=== PATIENT | female | born 1950 | race Caucasian/White ===

== ENCOUNTER 2018-10-05 15:42 | Inpatient (IN) | payer OTHER ==
[~2018-10-05] VITALS: Ht 167.6 cm; Wt 85.8 kg
[~2018-10-05 15:42] MED LIST: CIME200T6 PO; DULO20CA45 PO; GEMF600T8 PO; INSU100V8 SQ; LEVO75TA5 PO; METF850T10 PO; METO200T47 PO; METO25TA35 PO; PREG25CA PO; TRAM50TA2 PO
[2018-10-05] MEDS ORDERED: ONDANSETRON 2MG/ML, 2ML IVPush ONE (16:30)
[2018-10-05] MEDS ORDERED: SODIUM CHLORIDE FLUSH 10ML SYR IVF ONE (16:30)
--- NOTE | 2018-10-05 16:31 | NUR ---
pt bib remsa for chest, jaw and arm pain since 1400. pt has extensive cardiac history. states pain is like no other. pt also states she has diarrhea and has an incontinent pad in place. pt states she also used a grocery bag to contain her stool. pt helped to stand and cleaned. pt helped back to bed and md at bedside to assess. pt vital signs stable at this time. complaining of pain to chest. no changes noted.
[2018-10-05] MEDS ORDERED: MORPHINE SULFATE 4 MG/ML, 1ML ONE ×3 (16:44→19:13)
[2018-10-05] MEDS ORDERED: ONDANSETRON 2MG/ML, 2ML ONE (16:44)
[2018-10-05] MEDS: MORPHINE SULFATE 4 MG/ML, 1ML IVPush PRN ×2 (16:48→17:38)
[2018-10-05 16:51] LABS: BASOPHILS # (AUTO) 0.04 x10^3/uL (0-0.1); BASOPHILS % (AUTO) 0 % (0-1); EOSINOPHILS # (AUTO) 0.06 x10^3/uL (0-0.4); EOSINOPHILS % (AUTO) 0 % (1-7); LYMPHOCYTES # (AUTO) 0.99 x10^3/uL (1-3.4); LYMPHOCYTES % (AUTO) 7 % (22-44); MD NO; MEAN CORPUSCULAR HGB CONC 33.9 g/dL (32.4-35.8); MEAN CORPUSCULAR VOLUME 94.3 fL (80-100); MEAN PLATELET VOLUME 7.8 fL (7.4-10.4); MONOCYTES % (AUTO) 4 % (2-9); NEUTROPHILS % (AUTO) 89 % (42-75); PLATELET COUNT 340 x10^3/uL (130-400); RED BLOOD COUNT 5.38 x10^6/uL (3.82-5.3); RED CELL DISTRIBUTION WIDTH 13.9 % (9.6-15.2)
--- NOTE | 2018-10-05 16:53 | NUR ---
[facility] records [facility]
--- NOTE | 2018-10-05 16:54 | NUR ---
pt requesting this rn calls her daughter. pt states she might be working at [facility] but doesnt have a phone number for her. she approves this rn to call and leave a message for someone to contact her daughter and advise she is in the ed. this rn left a message for daughter at the [facility] and asked for her to call me back.
--- NOTE | 2018-10-05 16:58 | NUR ---
daughter returned call and will be attempting to come to the ed.
[2018-10-05 17:03] LABS: ALANINE AMINOTRANSFERASE 25 U/L (12-78); ALBUMIN 3.5 g/dL (3.4-5.0); ANION GAP 10 mmol/L (5-15); CALCIUM 8.7 mg/dL (8.5-10.1); CHLORIDE 100 mmol/L (98-107)
[2018-10-05 17:07] LABS: ALKALINE PHOSPHATASE 81 U/L (45-117); BILIRUBIN,TOTAL 0.5 mg/dL (0.2-1.0); TOTAL PROTEIN 7.6 g/dL (6.4-8.2)
[2018-10-05 17:10] LABS: TROPONIN I 0.135 ng/mL (0.000-0.045)
[2018-10-05 17:17] LABS: INTERNATIONAL NORMALIZED RATIO 1.04 (0.93-1.1)
--- NOTE | 2018-10-05 17:45 | NUR ---
pt resting in bed, medicated for pain per orders. pt updated on POC at this time. will continue to monitor.
--- NOTE | 2018-10-05 17:49 | NUR ---
ed [facility] the [facility] and [facility] pt will be admitted to [place]
--- NOTE | 2018-10-05 19:02 | NUR ---
TP RN: CALL[facility]; [facility] AND [facility] NOT BE ACCEPTING PT. FOR TRANSFER.
[2018-10-05] MEDS ORDERED: SODIUM CHLORIDE 0.9% 1,000 ML IV SCH (19:06)
[2018-10-05] MEDS: METOPROLOL TARTRATE 25 MG TABLET PO SCH (19:30)
[2018-10-05] MEDS ORDERED: ENOXAPARIN 40 MG/0.4 ML SQ SCH (19:30)
[2018-10-05] MEDS ORDERED: morphine SULFATE 10 MG/ML, 1ML IVPush PRN (19:30)
[2018-10-05] MEDS ORDERED: MORPHINE SULFATE 4 MG/ML, 1ML IVPush PRN (19:30)
[2018-10-05] MEDS ORDERED: ONDANSETRON 2MG/ML, 2ML IVPush PRN (19:30)
--- NOTE | 2018-10-05 19:45 | NUR ---
PT PROVIDED WATER PER ORDER
[2018-10-05] MEDS ORDERED: hydrOXyzine 50MG TABLET PO PRN (20:00)
--- NOTE | 2018-10-05 20:40 | NUR ---
AT PATIENT REQUEST, SOILED UNDERGARMENTS DISPOSED OF. PT PANTS PLACED IN 1 BAG, PT SHIRT AND ZIP UP OUTER SHIRT ARE PLACED IN A SECOND BAG. PT HAD 1 POUCH WITH ID'S AND OTHER PERSONAL ITEMS. THIS WAS PLACED IN THE POCKET OF THE OUTER SHIRT PER PATIENT REQUEST. ALL BELONGINGS AT BEDSIDE WITH PATIENT AT THIS TIME.
--- NOTE | 2018-10-05 20:58 | NUR ---
REPORT TO PASTOR AT THIS TIME
[2018-10-05] MEDS: INSULIN GLARGINE 100 UNITS/ML, PEN SQ-INSULIN SCH ×2 (21:00→23:33)
[2018-10-05] MEDS: INSULIN LISPRO 100 UNITS/ML, PEN SQ-INSULIN SCH (23:34)
[2018-10-06 00:25] VITALS: BP 74/45
[2018-10-06] MEDS: ACETAMINOPHEN 325 MG TABLET PO PRN (01:27)
[2018-10-06 01:28] VITALS: BP 81/46
[2018-10-06 05:37] LABS: BASOPHILS # (AUTO) 0.02 x10^3/uL (0-0.1); BASOPHILS % (AUTO) 0 % (0-1); EOSINOPHILS % (AUTO) 3 % (1-7); LYMPHOCYTES # (AUTO) 1.67 x10^3/uL (1-3.4); LYMPHOCYTES % (AUTO) 14 % (22-44); MD NO; MEAN CORPUSCULAR HEMOGLOBIN 32.1 pg (27.0-34.8); MEAN CORPUSCULAR HGB CONC 34.4 g/dL (32.4-35.8); MEAN CORPUSCULAR VOLUME 93.3 fL (80-100); MEAN PLATELET VOLUME 7.7 fL (7.4-10.4); MONOCYTES # (AUTO) 0.85 x10^3/uL (0.2-0.8); MONOCYTES % (AUTO) 7 % (2-9); NEUTROPHILS % (AUTO) 76 % (42-75); PLATELET COUNT 265 x10^3/uL (130-400); RED BLOOD COUNT 4.65 x10^6/uL (3.82-5.3); RED CELL DISTRIBUTION WIDTH 13.5 % (9.6-15.2)
[2018-10-06 05:49] LABS: CHLORIDE 101 mmol/L (98-107)
[2018-10-06 05:58] LABS: ALANINE AMINOTRANSFERASE 33 U/L (12-78); ALKALINE PHOSPHATASE 69 U/L (45-117); ANION GAP 6 mmol/L (5-15); BILIRUBIN,TOTAL 0.4 mg/dL (0.2-1.0); CALCIUM 8.2 mg/dL (8.5-10.1); CHOL/HDL RATIO 7.9; CHOLESTEROL, TOTAL 222 mg/dL (140-239); CREATININE 0.91 mg/dL (0.55-1.02); HDL CHOL % 13 % (28-40); HDL CHOLESTEROL (DIRECT) 28 mg/dL (40-60); LDL CHOLESTEROL,CALCULATED 116 mg/dL (54-169); LDL/HDL RATIO 4.1 (0.5-3.0); TOTAL PROTEIN 6.4 g/dL (6.4-8.2); TRIGLYCERIDES 389 mg/dL (50-200); VLDL CHOLESTEROL 78 mg/dL (0-25)
[2018-10-06] MEDS: METOPROLOL TARTRATE 25 MG TABLET PO SCH ×2 (06:00→16:27)
[2018-10-06] MEDS ORDERED: NICOTINE 14MG/24 HR PATCH.TD24 TD ONE (06:30)
[2018-10-06] MEDS ORDERED: LOVENOX/HEPARIN MC SCH (06:30)
[2018-10-06] MEDS ORDERED: SODIUM CHLORIDE 0.9%, 500ML IVBOLUS ONE ×2 (07:00→08:00)
[2018-10-06] MEDS ORDERED: HEPARIN 25,000 UNITS/500ML PMX 500 ML ONE (07:30)
[2018-10-06 07:47] VITALS: BP 111/77
[2018-10-06] MEDS ORDERED: HEPARIN 25,000 UNITS/500ML PMX 500 ML IV PRN (08:00)
[2018-10-06] MEDS ORDERED: HEPARIN 5,000 UNITS/ML, 1ML IV PRN (08:00)
[2018-10-06] MEDS ORDERED: FENTANYL PF 100 MCG/2ML ONE (08:16)
[2018-10-06] MEDS ORDERED: MIDAZOLAM 1 MG/ML, 5ML ONE (08:16)
[2018-10-06] MEDS ORDERED: NITROGLYCERIN 5 MG/ML, 10ML ONE (08:17)
[2018-10-06] MEDS ORDERED: LIDOCAINE 2%, 20ML ONE (08:17)
[2018-10-06] MEDS ORDERED: BIVALIRUDIN 250 MG ONE (08:17)
[2018-10-06] MEDS ORDERED: TICAGRELOR 90 MG TABLET ONE (08:17)
[2018-10-06] MEDS: CIMETIDINE 200 MG TABLET PO SCH (09:00)
[2018-10-06] MEDS: INSULIN LISPRO 100 UNITS/ML, PEN SQ-INSULIN SCH ×4 (09:00→21:54)
[2018-10-06] MEDS ORDERED: PRASUGREL 10 MG TABLET ONE (09:10)
[2018-10-06] MEDS ORDERED: BIVALIRUDIN 250 MG in DEXTROSE 5% 100 ML IV SCH (09:17)
[2018-10-06] MEDS: SODIUM CHLORIDE 0.9% 1,000 ML IV SCH ×2 (09:30→17:16)
[2018-10-06] MEDS: LEVOTHYROXINE 75 MCG TABLET PO SCH (10:17)
[2018-10-06 13:23] LABS: HEMOGLOBIN A1C 9.3 % (4.2-6.3)
[2018-10-06 13:58] VITALS: BP 88/44
[2018-10-06 17:21] LABS: CULTURE INDICATED? YES; MICROSCOPIC INDICATED
[2018-10-06] MEDS ORDERED: CALC60CR3 TP (21:38)
[2018-10-06 21:40] VITALS: BP 96/58
[2018-10-06] MEDS: ATORVASTATIN 40 MG TABLET PO SCH (21:53)
[2018-10-06] MEDS: INSULIN GLARGINE 100 UNITS/ML, PEN SQ-INSULIN SCH (21:54)
[2018-10-07] MEDS: SODIUM CHLORIDE 0.9% 1,000 ML IV SCH ×2 (01:17→16:41)
[2018-10-07 04:32] VITALS: BP 94/54
[2018-10-07 05:17] LABS: BASOPHILS # (AUTO) 0.04 x10^3/uL (0-0.1); BASOPHILS % (AUTO) 1 % (0-1); EOSINOPHILS # (AUTO) 0.07 x10^3/uL (0-0.4); EOSINOPHILS % (AUTO) 1 % (1-7); LYMPHOCYTES # (AUTO) 1.05 x10^3/uL (1-3.4); LYMPHOCYTES % (AUTO) 13 % (22-44); MD NO; MEAN CORPUSCULAR HEMOGLOBIN 32.6 pg (27.0-34.8); MEAN CORPUSCULAR HGB CONC 34.8 g/dL (32.4-35.8); MEAN CORPUSCULAR VOLUME 93.8 fL (80-100); MEAN PLATELET VOLUME 7.9 fL (7.4-10.4); MONOCYTES # (AUTO) 0.68 x10^3/uL (0.2-0.8); MONOCYTES % (AUTO) 9 % (2-9); NEUTROPHILS # (AUTO) 6.07 x10^3/uL (1.8-6.8); NEUTROPHILS % (AUTO) 77 % (42-75); PLATELET COUNT 232 x10^3/uL (130-400); RED BLOOD COUNT 4.84 x10^6/uL (3.82-5.3); RED CELL DISTRIBUTION WIDTH 13.7 % (9.6-15.2)
[2018-10-07 05:24] LABS: ANION GAP 1 mmol/L (5-15); CALCIUM 8.8 mg/dL (8.5-10.1); CHLORIDE 107 mmol/L (98-107); CREATININE 0.72 mg/dL (0.55-1.02)
[2018-10-07] MEDS: METOPROLOL TARTRATE 25 MG TABLET PO SCH ×3 (06:00→17:00)
[2018-10-07 07:25] VITALS: BP 99/62
[2018-10-07] MEDS: LEVOTHYROXINE 75 MCG TABLET PO SCH (08:43)
[2018-10-07] MEDS: PRASUGREL 10 MG TABLET PO SCH (08:43)
[2018-10-07] MEDS: CIMETIDINE 200 MG TABLET PO SCH (08:44)
[2018-10-07] MEDS: INSULIN LISPRO 100 UNITS/ML, PEN SQ-INSULIN SCH ×4 (08:50→21:25)
[2018-10-07] MEDS: CEFTRIAXONE PMX 1GM/50ML 50 ML IV SCH (10:23)
[2018-10-07 14:04] VITALS: BP 91/58
[2018-10-07] MEDS: GUAIFENESIN 200 MG TABLET PO SCH ×2 (16:57→21:25)
[2018-10-07] MEDS: MINERA CRM, 60GM TP SCH ×2 (16:57→21:26)
[2018-10-07 20:45] VITALS: BP 124/68
[2018-10-07] MEDS: ATORVASTATIN 40 MG TABLET PO SCH (21:24)
[2018-10-07] MEDS: ACETAMINOPHEN 325 MG TABLET PO PRN (21:24)
[2018-10-07] MEDS: INSULIN GLARGINE 100 UNITS/ML, PEN SQ-INSULIN SCH (21:26)
[2018-10-08 04:57] VITALS: BP 114/80
[2018-10-08] MEDS: GUAIFENESIN 200 MG TABLET PO SCH ×2 (06:10→11:45)
[2018-10-08] MEDS: ACETAMINOPHEN 325 MG TABLET PO PRN (06:10)
[2018-10-08] MEDS: METOPROLOL TARTRATE 25 MG TABLET PO SCH (06:11)
[2018-10-08] MEDS: MINERA CRM, 60GM TP SCH ×2 (06:11→11:45)
[2018-10-08] MEDS ORDERED: ASPIRIN 81 MG TABLET EC PO SCH (07:30)
[2018-10-08] MEDS ORDERED: PRAS10TA4 PO (07:32)
[2018-10-08] MEDS ORDERED: ASPI81TA45 PO (07:32)
[2018-10-08] MEDS ORDERED: INSU100I11 SQ-INSULIN (07:32)
[2018-10-08] MEDS ORDERED: INSU100I13 SQ-INSULIN (07:32)
[2018-10-08] MEDS ORDERED: METO25TA35 PO (07:32)
[2018-10-08] MEDS ORDERED: ATOR40TA78 PO (07:32)
[2018-10-08] MEDS ORDERED: CEFD300C37 PO (07:33)
[2018-10-08] MEDS: PRASUGREL 10 MG TABLET PO SCH (08:53)
[2018-10-08] MEDS: LEVOTHYROXINE 75 MCG TABLET PO SCH (08:53)
[2018-10-08] MEDS: INSULIN LISPRO 100 UNITS/ML, PEN SQ-INSULIN SCH ×2 (08:58→11:45)
[2018-10-08] MEDS: CIMETIDINE 200 MG TABLET PO SCH (08:59)
[2018-10-08] MEDS ORDERED: NICOTINE 21 MG/24 HR PATCH.TD24 TD SCH (09:00)
[2018-10-08 09:16] VITALS: BP 92/52
[2018-10-08] MEDS: CEFTRIAXONE PMX 1GM/50ML 50 ML IV SCH (10:18)
[2018-10-08] MEDS ORDERED: [UNRECOGNIZED DRUG - OTHER] (11:37)
[2018-10-08] MEDS ORDERED: INSU100C SQ-INSULIN (11:38)
[2018-10-08] MEDS ORDERED: INSULIN GLARGINE 100 UNITS/ML, PEN SQ-INSULIN SCH (21:00)
== END 2018-10-08 14:55 | disposition home or self-care (01) | DRG 246 ==
LOC: ED 17:21 → EDIP 19:06 → SUATTDRO 19:06 → 5SO 22:31 → DCLOUNGE 10-08 14:35
PROVIDERS: ADMIT Hospitalist; ATTEND Hospitalist
PROC: 027034Z Dilation of Coronary Artery, One Artery with Drug-eluting Intraluminal Device, Percutaneous Approach (ICD-10-PCS; principal; 2018-10-06)
PROC: 4A023N7 Measurement of Cardiac Sampling and Pressure, Left Heart, Percutaneous Approach (ICD-10-PCS; 2018-10-06)
PROC: B2111ZZ Fluoroscopy of Multiple Coronary Arteries using Low Osmolar Contrast (ICD-10-PCS; 2018-10-06)
PROC: B2151ZZ Fluoroscopy of Left Heart using Low Osmolar Contrast (ICD-10-PCS; 2018-10-06)
PROC: B2131ZZ Fluoroscopy of Multiple Coronary Artery Bypass Grafts using Low Osmolar Contrast (ICD-10-PCS; 2018-10-06)
PROC: B2181ZZ Fluoroscopy of Left Internal Mammary Bypass Graft using Low Osmolar Contrast (ICD-10-PCS; 2018-10-06)
DX: T82.898A Other specified complication of vascular prosthetic devices, implants and grafts, initial encounter (principal); I21.4 Non-ST elevation (NSTEMI) myocardial infarction; E87.1 Hypo-osmolality and hyponatremia; I44.2 Atrioventricular block, complete; N39.0 Urinary tract infection, site not specified; B96.20 Unspecified Escherichia coli [E. coli] as the cause of diseases classified elsewhere; E11.51 Type 2 diabetes mellitus with diabetic peripheral angiopathy without gangrene; E11.65 Type 2 diabetes mellitus with hyperglycemia; E78.5 Hyperlipidemia, unspecified; F17.200 Nicotine dependence, unspecified, uncomplicated; I10 Essential (primary) hypertension; I44.7 Left bundle-branch block, unspecified; L40.9 Psoriasis, unspecified; I95.9 Hypotension, unspecified; Y83.2 Surgical operation with anastomosis, bypass or graft as the cause of abnormal reaction of the patient, or of later complication, without mention of misadventure at the time of the procedure; Y92.89 Other specified places as the place of occurrence of the external cause; I25.2 Old myocardial infarction; Z79.4 Long term (current) use of insulin; Z90.710 Acquired absence of both cervix and uterus; Z95.0 Presence of cardiac pacemaker; Z95.1 Presence of aortocoronary bypass graft; Z79.82 Long term (current) use of aspirin; Z79.899 Other long term (current) drug therapy; Z90.49 Acquired absence of other specified parts of digestive tract; Z88.8 Allergy status to other drugs, medicaments and biological substances; Z88.1 Allergy status to other antibiotic agents; I25.119 Atherosclerotic heart disease of native coronary artery with unspecified angina pectoris
CPT/HCPCS: 36415; 93459; 99285; C9600; 71045; 80048; 80053; 80061; 81001; 82962; 83036; 83735; 84100; 84443; 84484; 85025; 85520; 85610; 85730; 87077; 87086; 87186; 93005; 93306; 96361; 96374; 96375; 99156; 99157; C1760; C1769; C1894; G0378; J0583; J0696; J1644; J1650; J2250; J2405; J3010; J3490; C1725; C1874; C1887; J1815; J7030; J7040; Q9967